=== PATIENT | male | born 1990 | race Two or more races ===

== ENCOUNTER 2017-07-12 02:31 | Emergency (ER) | payer OTHER ==
[~2017-07-12] VITALS: Ht 175.3 cm; Wt 94.3 kg
--- NOTE | 2017-07-12 02:40 | NUR ---
TO BED 1 A 26 YO MALE PATIENT BB GIRLFRIEND; EPIGASTRIC ABD PAIN, PRESSURE. PATIENT IS AAOX4, NAD NOTED. VSS. NONDIAPHORETIC. GOWNED. COMFORT MEASURES RENDERED. PLACED ON VS MONITORING.
--- NOTE | 2017-07-12 02:44 | NUR ---
DR ALEJANDRA AT BEDSIDE TO EVALUATE PATIENT.
[2017-07-12] MEDS ORDERED: ONDANSETRON HCL/PF 4 MG/2 ML VIAL ONE (02:47)
[2017-07-12] MEDS ORDERED: FAMOTIDINE/PF INJ 20 MG/2 ML VIAL IV ONE ×3 (02:47→04:00)
[2017-07-12] MEDS ORDERED: MORPHINE SULFATE INJ 4 MG/ML DISP.SYRIN ONE (02:50)
--- NOTE | 2017-07-12 02:50 | NUR ---
STARTED A SALINE LOCK ON THE LAC G18, BLOOD DRAWN AND SENT TO LAB.
[2017-07-12 02:59] LABS: HEMATOCRIT 50 % (39-51); HEMOGLOBIN 17.2 g/dL (13.5-17.5); MEAN CORPUSCULAR HEMOGLOBIN 28 PG (26.0-33.0); MEAN CORPUSCULAR HGB CONC 35 g/dl (31.0-36.0); MEAN CORPUSCULAR VOLUME 80 fL (80-96); PLATELET COUNT (AUTO) 263 /CMM (150-450); RDW COEFFICIENT OF VARIATION 12.3 (11.5-15.0); RED BLOOD CELL COUNT(AUTO) 6.23 MIL/uL (4.5-6.0); WHITE BLOOD COUNT (AUTO) 10.4 K/uL (4.3-11.0)
[2017-07-12] MEDS ORDERED: ONDANSETRON HCL/PF 4 MG/2 ML VIAL IVP ONE (03:00)
[2017-07-12] MEDS ORDERED: IV NS 0.9% 1,000 ML BAG IV ONE (03:00)
[2017-07-12] MEDS ORDERED: HYDROMORPHONE INJ 2 MG/ML DISP.SYRIN IV ONE (03:00)
[2017-07-12] MEDS ORDERED: MORPHINE SULFATE INJ 2 MG/ML DISP.SYRIN IV ONE (03:00)
--- NOTE | 2017-07-12 03:00 | NUR ---
STARTED A SALINE LOCK ON THE LAC G18, BLOOD DRAWN AND SENT TO LAB.
--- NOTE | 2017-07-12 03:07 | NUR ---
MEDICATED PATIENT ORDERED BY DR ALEJANDRA.
[2017-07-12 03:13] LABS: CALCIUM, SERUM 9.6 mg/dL (8.5-10.1); CREATININE 0.9 mg/dL (0.6-1.3); POTASSIUM 4.3 mmol/L (3.5-5.1)
[2017-07-12 03:19] LABS: ALBUMIN 4.3 g/dL (3.4-5.0); BILIRUBIN,DIRECT 0.1 mg/dL (0.0-0.2); TOTAL PROTEIN, SERUM 8.7 g/dL (6.4-8.2)
[2017-07-12 03:20] LABS: INR 0.96 (0.87-1.13)
--- NOTE | 2017-07-12 03:26 | NUR ---
BACK FROM CT.
[2017-07-12 03:42] LABS: LYMPHOCYTES % (MANUAL) 4 % (16-48); MONOCYTES % (MANUAL) 3 % (0-11.0); NEUTROPHILS % (MANUAL) 93 (42-76)
[2017-07-12 03:51] LABS: APPEARANCE,URINE CLEAR (CLEAR); BILIRUBIN,URINE 1+ (NEGATIVE); BLOOD, URINE NEGATIVE Ery/uL (NEGATIVE); COLOR,URINE DARK YELLOW (YELLOW); KETONES,URINE 1+ (NEGATIVE); LEUKOCYTE ESTERASE ,URINE NEGATIVE (NEGATIVE); NITRITE, URINE NEGATIVE (NEGATIVE); PROTEIN,URINE 1+ mg/dl (NEGATIVE); UGLUCOSE NEGATIVE (NEGATIVE)
[2017-07-12 03:56] LABS: BACTERIA,URINE Moderate /HPF (None Seen); RBC,URINE 0-2 /HPF (0-2); SQUAMOUS EPITHELIAL CELL,UR Rare /HPF (None Seen)
--- NOTE | 2017-07-12 06:22 | NUR ---
IV removed. Catheter intact and site benign. Pressure and 4x4 applied to site. No bleeding noted. Patient discharged to home in stable condition. Written and verbal after care instructions given. Patient verbalizes understanding of instruction. Patient is ambulatory with steady gait, accompanied by girlfriend. Instructed patient not to drive. Nad on dc. vss. No further complaints.
[2017-07-12 06:23] VITALS: BP 122/64
== END 2017-07-12 06:24 | disposition home or self-care (01) ==
LOC: ER 02:32
DX: R10.13 Epigastric pain (principal); K76.9 Liver disease, unspecified
CPT/HCPCS: 36415; 74176; 76705; 80048; 80076; 81001; 83690; 85025; 85730; 87077; 87086; 96361; 96374; 96375; 99285; A4606; J2270; J2405; J3490; J7030; Z7610; 81000-TC

== ENCOUNTER 2017-10-26 08:43 | Inpatient (IN) | payer OTHER ==
[~2017-10-26] VITALS: Ht 175.3 cm; Wt 79.4 kg
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
[2017-10-26 10:23] LABS: BASOPHILS # (AUTO) 0.2 /CMM (0.0-0.2); BASOPHILS % (AUTO) 2.2 % (0.0-2.0); EOSINOPHILS % (AUTO) 1.4 % (0.0-6.0); HEMATOCRIT 44 % (39-51); HEMOGLOBIN 15.3 g/dL (13.5-17.5); LYMPHOCYTES # (AUTO) 1.9 /CMM (0.8-4.8); LYMPHOCYTES % (AUTO) 18.9 % (20.0-44.0); MEAN CORPUSCULAR HGB CONC 35 g/dl (31.0-36.0); MEAN CORPUSCULAR VOLUME 81 fL (80-96); MONOCYTES # (AUTO) 0.8 /CMM (0.1-1.30); MONOCYTES % (AUTO) 7.6 % (2.0-12.0); NEUTROPHILS # (AUTO) 7.3 /CMM (1.8-8.9); NEUTROPHILS % (AUTO) 69.9 % (43.0-81.0); PLATELET COUNT (AUTO) 280 /CMM (150-450); RDW COEFFICIENT OF VARIATION 12.2 (11.5-15.0); RED BLOOD CELL COUNT(AUTO) 5.46 MIL/uL (4.5-6.0); WHITE BLOOD COUNT (AUTO) 10.3 K/uL (4.3-11.0)
[2017-10-26] MEDS ORDERED: IV NS 0.9% 1,000 ML BAG IV ONE (10:30)
[2017-10-26] MEDS ORDERED: HYDROCODONE/APAP 5/325MG 1 EACH TABLET PO ONE (10:30)
[2017-10-26 10:34] LABS: POTASSIUM 3.9 mmol/L (3.5-5.1)
[2017-10-26 10:39] LABS: ALBUMIN 3.8 g/dL (3.4-5.0); BILIRUBIN,DIRECT 0.2 mg/dL (0.0-0.2); BILIRUBIN,TOTAL 0.6 mg/dL (0.2-1.0); TOTAL PROTEIN, SERUM 7.6 g/dL (6.4-8.2)
[2017-10-26] MEDS ORDERED: HYDROCODONE/APAP 5/325MG 1 EACH TABLET ONE (10:41)
[2017-10-26 11:12] LABS: CREATINE KINASE MB 8.1 ng/mL (0-3.6)
[2017-10-26] MEDS ORDERED: IV NS 0.9% 1,000 ML IV ONE (12:00)
[2017-10-26 12:07] LABS: APPEARANCE,URINE Clear (CLEAR); BILIRUBIN,URINE Negative (NEGATIVE); BLOOD, URINE Small Ery/uL (NEGATIVE); COLOR,URINE Yellow (YELLOW); KETONES,URINE Negative (NEGATIVE); LEUKOCYTE ESTERASE ,URINE Negative (NEGATIVE); NITRITE, URINE Negative (NEGATIVE); PROTEIN,URINE Negative (NEGATIVE); UGLUCOSE Negative (NEGATIVE); UROBILINOGEN,URINE 0.2 EU/dL (0.2)
--- NOTE | 2017-10-26 12:14 | NUR ---
PATIENT TRANSPORTED FOR CT
[2017-10-26 12:37] LABS: BACTERIA,URINE Rare /HPF (None Seen); RBC,URINE 0-2 /HPF (0-2); SQUAMOUS EPITHELIAL CELL,UR Rare /HPF (None Seen); WBC,URINE 0-2 /HPF (0-3)
--- NOTE | 2017-10-26 12:42 | NUR ---
REPORT GIVEN TO JANE BORRERO FOR DAVON MS [facility]
--- NOTE | 2017-10-26 13:10 | NUR ---
MS/RN OPENING NOTE PATIENT IS RECEIVED ON A GURNEY FROM ER. RESPIRATION REGULAR AND UNLABORED. DENIES SOB, DENIES PAIN. LAC G 20 PATENT. PATIENT IS ORIENTED TO ROOM AND UNIT. BED LOW AND LOCKED. SIDE RAILS UP X2. CALL LIGHT WITHIN REACH. WILL CONTINUE TO MONITOR.
--- NOTE | 2017-10-26 14:00 | NUR ---
MS/RN NOTE PATIENT REFUSED SKIN ASSESSMENT DESPITE EXPLAINING RISKS AND BENEFITS MULTIPLE TIMES. WILL ENDORSE TO SAP SENIOR DEVELOPER.
[2017-10-26] MEDS ORDERED: ZOLPIDEM TARTRATE 5 MG TABLET PO PRN (14:30)
[2017-10-26] MEDS ORDERED: MAGNESIUM HYDROXIDE 30 ML UDC PO PRN (14:30)
[2017-10-26] MEDS ORDERED: MAG HYDROX/AL HYDROX/SIMETH 30 ML UDC PO PRN (14:30)
[2017-10-26] MEDS ORDERED: ONDANSETRON HCL/PF 4 MG/2 ML VIAL IVP PRN (14:30)
[2017-10-26] MEDS ORDERED: Z GUARD REMEDY 2 OZ OINT TP PRN (14:30)
[2017-10-26] MEDS ORDERED: ACETAMINOPHEN 325 MG TABLET PO PRN (14:30)
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
[2017-10-26 16:00] VITALS: BP 122/77
--- NOTE | 2017-10-26 16:15 | NUR ---
GIN sent an email with clinical information to Sindhu Poe ([email or web address]) at [facility] for a detox program.
--- NOTE | 2017-10-26 19:00 | NUR ---
MS/RN CLOSING NOTE PATIENT ALERT AND ORIENTED X4. DENIES SOB. RESPIRATION REGULAR AND UNLABORED. PATIENT IN NO APPARENT DISTRESS. LAC G 20 PATENT AND IV FLUIDS RUNNING WITH NO S/S INFILTRATION. BED LOW AND LOCKED. SIDE RAILS UP X2. CALL LIGHT WITHIN REACH. WILL ENDORSE TO EMPLOYMENT SERVICES DIRECTOR.
--- NOTE | 2017-10-26 19:15 | NUR ---
rn initial notes: received report from laura rn, pt in bed, awake, a/o x4, on ra, c/o generalized pain requesting for pain medication, iv access patent and flushing well, infusing with ns at 150ml/hr. gf at bed side. safety precautions for fall initiated call light in reach, discussed with pt and family regarding plan of care. both agree. will continue monitoring pt
[2017-10-26 20:00] VITALS: BP 125/66
[2017-10-26] MEDS: HYDROCODONE/APAP 5/325MG 1 EACH TABLET PO PRN (20:35)
--- NOTE | 2017-10-26 20:35 | NUR ---
prn norco: pt c/o 01/18 generalized pain especially tingling sensation on the foot, requesting for pain medication, prn norco 5/325 mg tab po administered to the pt at this time, will continue to monitor and reassess
--- NOTE | 2017-10-26 22:34 | NUR ---
rn notes: went back to check on the pt but noted to be sleeping, will reassess for pain again
--- NOTE | 2017-10-27 06:00 | NUR ---
PT REFUSED BLOOD DRAW, INFORM RENEWALS REPRESENTATIVE TO COME BACK AFTER BREAKFAST
[2017-10-27 06:31] LABS: APPEARANCE,URINE CLEAR (CLEAR); BILIRUBIN,URINE NEGATIVE (NEGATIVE); BLOOD, URINE TRACE Ery/uL (NEGATIVE); COLOR,URINE YELLOW (YELLOW); KETONES,URINE NEGATIVE (NEGATIVE); LEUKOCYTE ESTERASE ,URINE NEGATIVE (NEGATIVE); NITRITE, URINE NEGATIVE (NEGATIVE); PROTEIN,URINE NEGATIVE (NEGATIVE); UGLUCOSE NEGATIVE (NEGATIVE); UROBILINOGEN,URINE 0.2 EU/dL (0.2)
--- NOTE | 2017-10-27 06:55 | NUR ---
RN CLOSING NOTES: PT IN BED, SLEEPING, IV ACCESS REMAINS PATENT AND FLUSHING WELL, ON HL. VS REMAINS STABLE, NEEDS ATTENDED. SAFETY PRECAUTIONS FOR FALL REMAINS ENGAGED, CALL LIGHT IN REACH, WILL ENDORSE TO DAY RN FOR DAVON
[2017-10-27 07:11] LABS: BACTERIA,URINE None seen /HPF (None Seen); RBC,URINE 0-2 /HPF (0-2); SQUAMOUS EPITHELIAL CELL,UR Rare /HPF (None Seen); WBC,URINE 0-2 /HPF (0-3)
[2017-10-27 08:00] VITALS: BP 112/66
--- NOTE | 2017-10-27 08:01 | NUR ---
RN OPENING NOTES PATIENT ALERT AND ORIENTED X4. DENIES SOB. RESPIRATIONS EVEN AND UNLABORED. PATIENT IN NO APPARENT DISTRESS. LAC G 20 PATENT AND IV FLUIDS RUNNING WITH NO S/S INFILTRATION. BED LOW AND LOCKED. SIDE RAILS UP X2. CALL LIGHT WITHIN REACH. WILL CONTINUE TO MONITOR
[2017-10-27 09:47] LABS: BASOPHILS % (AUTO) 0.5 % (0.0-2.0); EOSINOPHILS % (AUTO) 1.4 % (0.0-6.0); HEMATOCRIT 39 % (39-51); HEMOGLOBIN 13.3 g/dL (13.5-17.5); LYMPHOCYTES % (AUTO) 26.5 % (20.0-44.0); MEAN CORPUSCULAR HGB CONC 34 g/dl (31.0-36.0); MEAN CORPUSCULAR VOLUME 82 fL (80-96); MONOCYTES # (AUTO) 0.7 /CMM (0.1-1.30); MONOCYTES % (AUTO) 8.9 % (2.0-12.0); NEUTROPHILS # (AUTO) 4.7 /CMM (1.8-8.9); NEUTROPHILS % (AUTO) 62.7 % (43.0-81.0); PLATELET COUNT (AUTO) 249 /CMM (150-450); RDW COEFFICIENT OF VARIATION 13.2 (11.5-15.0); RED BLOOD CELL COUNT(AUTO) 4.78 MIL/uL (4.5-6.0); WHITE BLOOD COUNT (AUTO) 7.4 K/uL (4.3-11.0)
[2017-10-27 10:12] LABS: CALCIUM, SERUM 8.7 mg/dL (8.5-10.1); CREATININE 0.8 mg/dL (0.6-1.3); MAGNESIUM 2.1 mg/dL (1.8-2.4); PHOSPHORUS 3.3 mg/dL (2.5-4.9)
[2017-10-27] MEDS: IV NS 0.9% 1,000 ML BAG IV SCH ×2 (10:18→17:53)
[2017-10-27] MEDS: HYDROCODONE/APAP 5/325MG 1 EACH TABLET PO PRN (10:32)
[2017-10-27 16:00] VITALS: BP 128/71
[2017-10-27] MEDS ORDERED: IV NS 0.9% 1,000 ML IV PRN (17:30)
--- NOTE | 2017-10-27 18:52 | NUR ---
RN CLOSING NOTES PATIENT ALERT AND ORIENTED X4. DENIES SOB. RESPIRATIONS EVEN AND UNLABORED. PATIENT IN NO APPARENT DISTRESS. LAC G 20 PATENT AND IV FLUIDS RUNNING WITH NO S/S INFILTRATION. BED LOW AND LOCKED. SIDE RAILS UP X2. CALL LIGHT WITHIN REACH. WILL CONTINUE TO MONITOR AND ENDORSE TO NEXT SHIFT FOR CONTINUITY OF CARE
[2017-10-27 20:00] VITALS: BP 132/71
[2017-10-28 05:14] LABS: BASOPHILS # (AUTO) 0.1 /CMM (0.0-0.2); BASOPHILS % (AUTO) 0.7 % (0.0-2.0); EOSINOPHILS % (AUTO) 2.9 % (0.0-6.0); HEMATOCRIT 40 % (39-51); HEMOGLOBIN 13.8 g/dL (13.5-17.5); LYMPHOCYTES # (AUTO) 2.8 /CMM (0.8-4.8); LYMPHOCYTES % (AUTO) 39.4 % (20.0-44.0); MEAN CORPUSCULAR HGB CONC 35 g/dl (31.0-36.0); MEAN CORPUSCULAR VOLUME 82 fL (80-96); MONOCYTES # (AUTO) 0.6 /CMM (0.1-1.30); NEUTROPHILS # (AUTO) 3.4 /CMM (1.8-8.9); PLATELET COUNT (AUTO) 247 /CMM (150-450); RDW COEFFICIENT OF VARIATION 12.9 (11.5-15.0); RED BLOOD CELL COUNT(AUTO) 4.84 MIL/uL (4.5-6.0); WHITE BLOOD COUNT (AUTO) 7.2 K/uL (4.3-11.0)
[2017-10-28 05:35] LABS: ALBUMIN 3.3 g/dL (3.4-5.0); BILIRUBIN,TOTAL 0.2 mg/dL (0.2-1.0); CALCIUM, SERUM 9.2 mg/dL (8.5-10.1); CREATININE 0.7 mg/dL (0.6-1.3); POTASSIUM 3.9 mmol/L (3.5-5.1)
[2017-10-28 05:53] LABS: MAGNESIUM 2.1 mg/dL (1.8-2.4)
[2017-10-28 06:00] LABS: CREATINE KINASE MB 0.9 ng/mL (0-3.6)
--- NOTE | 2017-10-28 06:51 | NUR ---
MS RN NOTES AWAKE & RESPONSIVE. NOT IN ANY DISTRESS. NO SOB NOTED. DENIES ANY PAIN OR DISCOMFORT AT THIS TIME. WITH IVF INFUSING WELL. MONITORED ACCORDINGLY. CALL LIGHT WITHIN REACH. BED IN LOWEST POSITION. SR UP X 2 FOR SAFETY. WILL ENDORSE TO NEXT SHIFT.
--- NOTE | 2017-10-28 07:40 | NUR ---
M/S RN - Assessment Patient awake, A/O x 4, denies pain, no apparent distress seen. IVF NS @ 175 ml/hr infusing well on the LAC with no signs of infiltration. Skin is intact, patient independent with bed mobility. All needs attended and met. Patient updated on plan of care. Will continue with current medical management.
[2017-10-28 08:00] VITALS: BP 125/65
--- NOTE | 2017-10-28 15:45 | NUR ---
GIN met with pt. and his girlfriend bedside. GIN informed pt. to call [facility] for a phone intake . Pt. called them and was informed they will have a bed available next week. GIN encouraged pt. to go to treatment. No other social service needs are requested at this time. SW is available, if needed.
--- NOTE | 2017-10-28 16:20 | NUR ---
M/S RN - Discharge Patient feeling better, discharged to home in stable condition. Reviewed discharge instructions with pt and he verbalized full understanding of all teachings including follow up with his PCP in 1 week and drug rehab center. field crop farmworker provided drug rehab list. All belongings with the patient and he denies any missing items. VSS, denies pain, no c/o nausea and vomiting, tolerating regular diet well, no apparent distress seen. Heplock removed on the LAC with catheter tip intact, no redness and no swelling noted at the site. Skin is intact, refused photo to be taken. Discharge papers signed and copy was given per protocol. Accompanied to the lobby and transported by private car by girlfriend Josie.
== END 2017-10-28 16:20 | disposition home or self-care (01) | DRG 351 ==
LOC: ER 08:44 → MEDSG2 12:36
PROVIDERS: ADMIT Family Medicine; ATTEND Family Medicine
DX: M62.82 Rhabdomyolysis (principal); F15.10 Other stimulant abuse, uncomplicated; V47.0XXA Car driver injured in collision with fixed or stationary object in nontraffic accident, initial encounter; R79.89 Other specified abnormal findings of blood chemistry; Z83.3 Family history of diabetes mellitus; Z87.891 Personal history of nicotine dependence; Y93.9 Activity, unspecified; Y92.830 Public park as the place of occurrence of the external cause
CPT/HCPCS: 36415; 72128-TC; 72131-TC; 80048-TC; 80053-TC; 80076-TC; 80305; 81000-TC; 82550-TC; 82553-TC; 83735-TC; 84100-TC; 85025-TC; 87081-TC; A4606; J7030; Z7610

== ENCOUNTER 2018-01-22 09:12 | Emergency (ER) | payer OTHER ==
[~2018-01-22] VITALS: Ht 175.3 cm; Wt 95.3 kg
[2018-01-22 09:19] VITALS: BP 161/105
== END 2018-01-22 09:29 | disposition home or self-care (01) ==
LOC: ER 09:15
DX: H66.92 Otitis media, unspecified, left ear (principal); F10.10 Alcohol abuse, uncomplicated; Z60.2 Problems related to living alone
CPT/HCPCS: A4606; Z7610